=== PATIENT | female | born 1960 ===

== ENCOUNTER 2017-06-10 06:00 | Day surgery (SDC) | payer OTHER ==
[~2017-06-10 06:00] MED LIST: FENOFIBRATE40 MG PO; METFORMIN HCL500 MG PO; PRISTIQ PO
== END 2017-06-10 11:45 | disposition home or self-care (01) ==
LOC: CIR.AMB 06:00
DX: N84.0 Polyp of corpus uteri (principal); N85.00 Endometrial hyperplasia, unspecified

== ENCOUNTER → 2021-08-07 | Outpatient (CLI) | payer OTHER | END | disposition home or self-care (01) | LOC: NUCLEAR 07:00 | DX: K31.84 Gastroparesis (principal) ==